=== PATIENT | male | born 1955 | race Caucasian/White ===

== ENCOUNTER → 2020-09-12 | Outpatient (CLI) | payer OTHER ==
[~2020-09-12] MED LIST: CEPH500 PO; Cleocin HCl150 MG PO; FLAX; HYDACE10B PO; Norco 5-325 Ta1 EACH PO; Percocet 5-3251 EACH PO; RXHYDACE PO; Triamcinolone A15 G4 TOP
== END ==
LOC: LAB SHORT 07:59 → LAB 07:59
DX: L60.2 Onychogryphosis (principal); B35.1 Tinea unguium
CPT/HCPCS: 88304; 88312

== ENCOUNTER 2024-09-10 09:57 | Emergency (ER) | payer OTHER ==
[~2024-09-10] VITALS: Ht 185.4 cm; Wt 83.9 kg
[2024-09-10 10:16] VITALS: BP 144/77
[2024-09-10] MEDS ORDERED: Ketorolac Tromethamine 30mg Vial IM ONE (13:10)
== END 2024-09-10 13:32 | disposition home or self-care (01) ==
LOC: ER 09:57
DX: S81.812A Laceration without foreign body, left lower leg, initial encounter (principal); S81.811A Laceration without foreign body, right lower leg, initial encounter; W25.XXXA Contact with sharp glass, initial encounter; Z87.891 Personal history of nicotine dependence; Z88.0 Allergy status to penicillin
CPT/HCPCS: 12005; 73590; 90471; 90715; 96372; 99283-25; J1885

== ENCOUNTER 2024-09-17 22:07 | Emergency (ER) | payer OTHER ==
[~2024-09-17] VITALS: Ht 185.4 cm; Wt 86.2 kg
[2024-09-17] MEDS ORDERED: Trimethoprim/Sulfamethoxazole DS Tab PO ONE (23:00)
[2024-09-17] MEDS ORDERED: BACTRIM DS TAB1 EAC1 PO (23:03)
[2024-09-17] MEDS ORDERED: CEPH500 PO (23:03)
[2024-09-17 23:28] VITALS: BP 148/81
== END 2024-09-17 23:27 | disposition home or self-care (01) ==
LOC: ER 22:07
DX: T81.41XA Infection following a procedure, superficial incisional surgical site, initial encounter (principal); L03.116 Cellulitis of left lower limb
CPT/HCPCS: 99283; A9270

== ENCOUNTER → 2024-10-22 | Outpatient (CLI) | payer OTHER ==
[~2024-10-22] MED LIST changes: +BACTRIM DS TAB1 EAC1 PO
[2024-10-22 17:41] LABS: BASOPHILS ABSOLUTE AUTO 0.03 K/mm3 (0.00-0.23); BASOPHILS PERCENT AUTO 0 % (0-2); EOSINOPHILS ABSOLUTE AUTO 0.73 K/mm3 (0.00-0.68); EOSINOPHILS PERCENT AUTO 8 % (0-6); Hematocrit 38.5 % (37.0-53.0); Hemoglobin 12.8 g/dL (13.5-17.5); IMMATURE GRAN ABSOLUTE AUTO 0.03 K/mm3 (0.00-0.10); IMMATURE GRAN PERCENT AUTO 0 % (0-1); LYMPHOCYTES ABSOLUTE AUTO 1.33 K/mm3 (0.84-5.20); LYMPHOCYTES PERCENT AUTO 14 % (21-46); MONOCYTES ABSOLUTE AUTO 0.44 K/mm3 (0.16-1.47); MONOCYTES PERCENT AUTO 5 % (4-13); Mean Corpuscular HGB Conc 33.2 g/dL (31.5-36.5); Mean Corpuscular Volume 95 fL (80-100); NEUTROPHILS ABSOLUTE AUTO 7.20 K/mm3 (1.96-9.15); NEUTROPHILS PERCENT AUTO 74 % (41-73); NRBC ABSOLUTE 0.00 K/mm3 (0.00-0.02); NRBC Auto 0.0 /100 WBC (0.0-0.2); Platelet Count 213 K/mm3 (150-400); RDW Coefficient Variation 13.1 % (11.7-14.2); RDW Standard Deviation 46.1 fL (35.1-46.3)
[2024-10-22 19:43] LABS: Alanine Aminotransfer (ALT/SGP 23 U/L (12-78); Albumin, Blood 4.0 g/dL (3.4-5.0); Albumin/Globulin Ratio 1.2 (0.8-1.8); Anion Gap 10 mmol/L (3-11); Aspartate Aminotrans (AST/SGOT 21 U/L (12-37); Bilirubin, Total 0.6 mg/dL (0.1-1.0); Blood Urea Nitrogen 20 mg/dL (8-24); CHOL/HDL RATIO 3.0; CO2, Blood 25 mmol/L (21-32); Calcium, Blood 9.3 mg/dL (8.5-10.1); Chloride, Blood 107 mmol/L (98-108); Cholesterol 176 mg/dL (50-200); Creatinine, Blood 0.91 mg/dL (0.60-1.20); Globulin, Blood 3.3 g/dL (2.2-4.0); Glucose, Blood 95 mg/dL (70-99); HDL Cholesterol 58 mg/dL (>39); LDL/HDL RATIO 1.8; Low Density Lipoprotein Chol 106 mg/dL (0-110); PSA, %Free 20.1 %; PSA, Free 1.180 ng/mL; Potassium, Blood 3.8 mmol/L (3.5-5.5); Prostate Specific Antigen 5.880 ng/mL (0.000-4.000); Sodium, Blood 138 mmol/L (136-145); Total Protein, Blood 7.3 g/dL (6.4-8.2); Triglycerides 59 mg/dL (30-160); Very Low Density Lipoprot Chol 11 mg/dL (6-32)
== END ==
LOC: LAB SHORT 11:31 → LAB 11:31
PROVIDERS: Nurse Practitioner Family
DX: E78.5 Hyperlipidemia, unspecified (principal); N40.1 Benign prostatic hyperplasia with lower urinary tract symptoms
CPT/HCPCS: 80053; 80061; 84153; 84154; 85025